=== PATIENT | female | born 1955 | race Caucasian/White ===

== ENCOUNTER 2016-11-13 23:32 | Observation (INO) | payer OTHER ==
[2016-11-14] MEDS ORDERED: ALBUTEROL SULFATE 2.5 MG/0.5 ML VIAL.NEB IH ONE ×3 (00:05→05:46)
--- NOTE | 2016-11-14 00:06 | ERNOTE ---
Dyspnea - General Presenting Symptoms: shortness of breath, wheezing Time Seen by Provider: 11/13/16 23:47 Source: patient Exam Limitations: no limitations - Immun/Allergies/Home Medications Immunizations: IMMUNIZATION HX Immunizations Up to Date No History of Influenza Vaccine No Allergies/Adverse Reactions: Allergies adhesive tape Allergy (Verified 11/13/16 23:46) Home Medications: HOME MEDICATIONS Estrogens, Conjugated [Premarin] 0.3 mg PO DAILY 11/13/16 [Last Taken Unknown] - History of Present Illness Narrative: Pt states she began to have sinusitis symptoms a couple of days ago that worsened today. She began to have chest tightness and presented to the ED. 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 Initiating event: Reports: upper resp illness Frequency of episodes: Reports: frequent episodes - of sinusitis Modifying Factors - (Improves): Reports: nothing Modifying Factors (Worsens): Reports: activity Associated Symptoms-Dyspnea: Reports: fever/chills - shaking chills and teeth chattering today Review of Systems - Review of Systems Constitutional: Present: recent illness, chills, fatigue EYE: Present: no symptoms reported ENT: Present: nose congestion Respiratory: Present: See HPI Cardiology: Present: chest pain Gastrointestinal/Abdominal: Present: nausea, diarrhea Genitourinary: Present: no symptoms reported Musculoskeletal: Present: no symptoms reported Skin: Absent: rash Neurological: Present: headache Endocrine: Present: excessive sweating Hematologic/Lymphatic: Present: no symptoms reported Psych: Present: no symptoms reported - Patient's Past Medical History Patient History - Medical: Other Patient History - Cardiac/Respiratory: No pertinent hx Patient History - Cancer: No Hx of Cancer Patient History - Surgical Procedures: D & C, Hysterectomy Patient History - Other: None - Social History Living Situations: home Psych History: No pertinent hx Smoking Status: Never smoker Alcohol Use: none Drug Use: none - Immunizations Immunizations Up to Date: No History of Influenza Vaccine: No Physical Exam - Physical Exam General Appearance: Present: wd/wn, alert, no apparent distress Head Exam: Present: normal inspection, no evidence of injury Eye Exam: Normal inspection: bilateral Neck: Present: normal inspection, nontender Respiratory: Present: no respiratory distress, rales, rhonchi - left > right , wheezing Cardiovascular/Chest: Present: no murmur, tachycardia Extremity Exam: Present: normal inspection, non-tender, normal range of motion, no edema Neurological Exam: Present: alert, oriented, normal mood/affect, no motor/ sensory deficits Skin Exam: Present: normal color, warm/dry Lymphatic Exam: Present: no adenopathy ED Progress - Results and Orders Patient's Lab Results:: I have reviewed the patient's lab results. Results and Orders: Laboratory Tests 11/14/16 11/14/16 00:15 00:15 WBC 11.1 H Hgb 13.2 Hct 39.3 Plt Count 289 Neutrophils % 86.5 H Sodium 141 Potassium 3.1 L Chloride 104 Carbon Dioxide 25.8 BUN 12 Creatinine 0.94 Random Glucose 168 H Calcium 9.0 Total Bilirubin 0.3 AST 14 ALT 20 Alkaline Phosphatase 93 Troponin I 0.140 H* Total Protein 7.2 Albumin 3.5 - Vital Signs Patient's Vital Signs:: I have reviewed the patient's vital signs. Vital Signs: Vital Signs 11/13/16 23:34 Temperature 36.4 C L Pulse Rate 120 H Respiratory 20 Rate Blood Pressure 213/111 O2 Sat by Pulse 86 L Oximetry - EKG EKG: supraventricular tachycardia, RBBB - incomplete, nonspecific ST T wave changes EKG read: Interp. by me - X-Ray X-Ray #1 X-Ray: chest Interpretation: Interp. by me X-ray Comments: RLL pneumonia - CT/Ultrasound CT/Ultrasound Narrative: CTA chest No PE seen Slight Patchy groundglass densities No pleural effusion or pneumothorax No aneurism or dissection - Progress/Reassessment Chief Complaint: Dyspnea Progress:: Improved Progress Note-Subjective: 11/14/16 01:27 discussed results with patient including RLL pneumonia and slight elevation of Troponin. discussed obs admit, pt agreed. After discussing this with the patient the d-dimer result was returned and it was elevated. Wells score is 1.5 and I went back in to discuss this with the patient and the possibility of getting a CT angiogram. Family then stated that the patient has been having some hemoptysis and did have a 3 hour flight and car riding to get here. She also has risk factors of obesity and on hormone replacement therapy. After discussing these factors her Wells score was then >2 and moderate probability. She and family agreed that they were concerned enough about PE as well that they would prefer to have the CT angio done tonight if we can get a large bore IV in place. Nursing had difficulty getting a 20g IV initially but will go back and see if a vein that could take an 18g IV could be found. 11/14/16 01:33 18g IV was placed and CT angio of her chest ordered. 11/14/16 02:[address] angio with patient and observation admission. Pt agrees with obs. admission Spoke with Anya LEWISP hospitalist about observation admit. She agrees with obs admission Departure Clinical Impression: Pneumonia Qualifiers: Pneumonia type: due to unspecified organism Laterality: right Lung location: lower lobe of lung Qualified Code(s): J18.1 - Lobar pneumonia, unspecified organism - Departure Disposition: [facility] Condition: Fair
[2016-11-14 00:36] LABS: Hematocrit 39.3 % (37.0-47.0); Hemoglobin 13.2 gm/dL (12.5-16.0); Mean Cell Volume 87.7 fl (78-100); Mean Corpuscular Hemoglobin 29.5 pg (27-31); Mean Corpuscular Hgb Conc 33.6 g/dl (32-36); Mean Platelet Volume 9.8 fl (6.0-9.5); Neutrophil # 9.6 K/mm3 (1.3-6.0); Neutrophil % 86.5 % (42-75.0); Platelet Count 289 K/mm3 (150-450); Red Blood Count 4.48 M/mm3 (4.2-5.4); Red Cell Distribution Width 12.6 % (11.5-14.0); White Blood Count 11.1 K/mm3 (4.0-10.5)
[2016-11-14 00:58] LABS: Albumin * 3.5 gm/dl (3.4-5.0); Anion Gap 14.3 mmol/L (6.8-13.8); BUN/Creatinine Ratio 12.8 (9.0-21.6); Bilirubin, Total 0.3 mg/dL (0.0-1.1); Ca. Corrected For Albumin 9.1 mg/dL (8.4-10.2); Carbon Dioxide 25.8 mmol/L (24-32.6); Potassium 3.1 mmol/L (3.4-4.6); Total Protein 7.2 gm/dL (6.2-8.2)
[2016-11-14 00:59] LABS: Troponin I 0.14 ng/ml (0.00-0.10)
[2016-11-14 03:54] VITALS: BP 133/59
[2016-11-14] MEDS ORDERED: POTASSIUM CHLORIDE 20 MEQ TABLET.SA PO ONE (04:30)
[2016-11-14] MEDS ORDERED: ACETAMINOPHEN 325 MG TABLET PO PRN (05:43)
--- NOTE | 2016-11-14 06:01 | HP ---
Chief Complaint - Chief Complaint Date of Service: 11/14/16 Time of Service: 04:30 Chief Complaint: cough, SOB, History of Present Illness: 61 years old female adm to the hospital from ER with reports of cough, with thick yellow -green sputum. Associated s/s shortness of breath, rigors, chills and fever.pt stated for the past few days she been feeling a little fatigue and having the cough. Initially she thought it was her sinus, she had recurrent sinusitis in the past. While at home she used Tylenol and azithromycin x1 dose provided by her sister , however s/s unresolved. She was having increased chills and rigors overnight, felt more concern and came to the ER. In ER CXR: left lower lobe pneumonia. Dimer elevated CTA chest negative for pulmonary emboli, initial troponin elevated and repeating lab. In Er Hypoxic spo2 80% on room air. IV antbx initiated and neb treatment. pt stated she is feeling much better. Plan of care discussed with pt she verbalized understanding and agree. - Patient's Past Medical History Patient History - Medical: Other - sinusitis Patient History - Cardiac/Respiratory: No pertinent hx Patient History - Cancer: No Hx of Cancer Patient History - Surgical Procedures: D & C, Hysterectomy Patient History - Other: None LMP (females 10-50): Menopausal - Family History Mother Family History - Cardiac/Respiratory: Aneurysm - brain Father Family History - Cardiac/Respiratory: Aneurysm - aortic, CVA/Stroke - Social History Living Situations: spouse Psych History: No pertinent hx Smoking Status: Current every day smoker Have you smoked in the past 12 months: No Do you dip or chew tobacco: No Alcohol Use: none Drug Use: none - Immunizations Immunizations Up to Date: No History of Influenza Vaccine: No Review Of Systems (GEN) - Review of Systems Generalized/Overall Review: Present: Chills, Fever, Malaise EENTM: Present: No Symptoms Reported Respiratory: Present: Cough, Shortness of Breath Cardiac: Present: No Symptoms Reported Abdominal: Present: No Symptoms Reported Genitourinary: Present: No Symptoms Reported Musculoskeletal: Present: No Symptoms Reported Neurological: Present: No Symptoms Reported, Anxiety Skin: Present: No Symptoms Reported Endocrine: Present: No Symptoms Reported Immunizations: IMMUNIZATION HX Immunizations Up to Date No History of Influenza Vaccine No Allergies/Adverse Reactions: Allergies Allergy/AdvReac Type Severity Reaction Status Date / Time adhesive tape Allergy Verified 11/13/16 23:46 Home Medications: HOME MEDICATIONS Estrogens, Conjugated [Premarin] 0.3 mg PO DAILY 11/13/16 [Last Taken Unknown] Exam - Exam Vital Signs: Vital Signs - Last Taken Temp 37.1 C 11/14/16 03:02 Pulse 111 H 11/14/16 03:02 Resp 18 11/14/16 03:02 BP 133/59 11/14/16 03:02 Pulse Ox 94 11/14/16 03:02 Constitutional: Present: Alert, Oriented x3, Cooperative, Well developed, No distress, Elderly, Obese ENT Exam: Present: hearing grossly normal Eye Exam: bilateral eye: normal inspection Neck: Present: full range of motion Back Exam: Present: normal inspection Breasts: Present: Exam deferred Respiratory: Present: chest non-tender, no respiratory distress, decreased breath sounds, wheezing Cardiovascular/Chest: Present: normal peripheral pulses, regular rate, rhythm, diastolic murmur Peripheral Pulses: dorsalis-pedis (R): 3+, dorsalis-pedis (L): 3+ Abdomen: Present: Normal bowel sounds, soft, nontender, nondistended, no rebound tenderness /Rectal: Present: Exam deferred Extremity: Present: normal range of motion, non-tender, normal inspection, no pedal edema, no calf tenderness Skin Exam: Present: normal color, warm/dry, no cyanosis Neurologic: Present: oriented x 3 Appearance: Present: appropriate appearance Eye contact: Present: cooperative, good eye contact Diagnostic Studies: Laboratory Results WBC 11.1 K/mm3 (4.0-10.5) H 11/14/16 00:15 RBC 4.48 M/mm3 (4.2-5.4) 11/14/16 00:15 Hgb 13.2 gm/dL (12.5-16.0) 11/14/16 00:15 Hct 39.3 % (37.0-47.0) 11/14/16 00:15 MCV 87.7 fl (78-100) 11/14/16 00:15 MCH 29.5 pg (27-31) 11/14/16 00:15 MCHC 33.6 g/dl (32-36) 11/14/16 00:15 RDW 12.6 % (11.5-14.0) 11/14/16 00:15 Plt Count 289 K/mm3 (150-450) 11/14/16 00:15 MPV 9.8 fl (6.0-9.5) H 11/14/16 00:15 Immature Gran % (Auto) 0.40 % (0.001-0.429) 11/14/16 00:15 Immature Gran # (Auto) 0.04 K/mm3 (0.000-0.0310) H 11/14/16 00:15 Neutrophils % 86.5 % (42-75.0) H 11/14/16 00:15 Lymphocytes % 11.9 % (20-51) L 11/14/16 00:15 Monocytes % 0.5 % (0.0-9) 11/14/16 00:15 Eosinophils % 0.4 % (0.0-3.0) 11/14/16 00:15 Basophils % 0.3 % (0.0-1.0) 11/14/16 00:15 Nucleated RBC % 0.0 k/mm3 (0-1) 11/14/16 00:15 Neutrophils # 9.6 K/mm3 (1.3-6.0) H 11/14/16 00:15 Lymphocytes # 1.3 k/mm3 (1.5-3.5) L 11/14/16 00:15 Monocytes # 0.1 k/mm3 (0.0-1.0) 11/14/16 00:15 Eosinophils # 0.0 k/mm3 (0.0-0.7) 11/14/16 00:15 Absolute Basophils 0.0 k/mm3 (0.0-0.1) 11/14/16 00:15 D-Dimer 1.30 mg/L (0.19-0.49) H 11/14/16 00:15 Sodium 141 mmol/L (132-142) 11/14/16 00:15 Plasma Sodium 142 mmol/L (130-142) 11/14/16 00:15 Potassium 3.1 mmol/L (3.4-4.6) L 11/14/16 00:15 Chloride 104 mmol/L (97-106) 11/14/16 00:15 Carbon Dioxide 25.8 mmol/L (24-32.6) 11/14/16 00:15 Anion Gap 14.3 mmol/L (6.8-13.8) H 10 00:15 BUN 12 mg/dL (3-23) 11/14/16 00:15 Creatinine 0.94 mg/dL (0.4-1.4) 11/14/16 00:15 Est GFR (Non-Af Amer) 64 mL/min (60-130) 11/14/16 00:15 BUN/Creatinine Ratio 12.8 (9.0-21.6) 11/14/16 00:15 Random Glucose 168 mg/dL (70-110) H 11/14/16 00:15 Calcium 9.0 mg/dL (7.9-10.9) 11/14/16 00:15 Calcium Adj for Albumin 9.1 mg/dL (8.4-10.2) 11/14/16 00:15 Total Bilirubin 0.3 mg/dL (0.0-1.1) 11/14/16 00:15 AST 14 U/L (0-48) 11/14/16 00:15 ALT 20 U/L (19-67) 11/14/16 00:15 Alkaline Phosphatase 93 U/L (50-170) 11/14/16 00:15 Troponin I 0.140 ng/ml (0.00-0.10) H* 11/14/16 00:15 Total Protein 7.2 gm/dL (6.2-8.2) 11/14/16 00:15 Albumin 3.5 gm/dl (3.4-5.0) 11/14/16 00:15 CXR: Right lower lobe pneumonia Assessment/Plan - Narrative Narrative: Community acquired pneumonia Seen on CXR: Right lower lobe pneumonia Continue with Rocephin sputum and blood culture pending Neb treatment schedule for shortness of breath supplemented oxygen Hypokalemia On adm potassium level 3.1 On adm troponin 0.140----> trending EKG noted and if repeated troponin remain elevated repeat EKG K-dur 40meq supplemented and monitor bmp Elevated Dimer CTA chest negative for PE Hypoxic- resolved In ER spo2 86% on room air supplemented oxygen Code status: Full GI ppx Pepcid VTE ppx : SCD and ambulate - Assessment/Plan (1) Pneumonia Problem: Acute Qualifiers: Pneumonia type: due to unspecified organism Laterality: right Lung location: lower lobe of lung Qualified Code(s): J18.1 - Lobar pneumonia, unspecified organism (2) Hypokalemia Problem: Acute (3) Elevated d-dimer Problem: Acute
[2016-11-14 06:08] LABS: Hematocrit 36.4 % (37.0-47.0); Hemoglobin 12.4 gm/dL (12.5-16.0); Mean Cell Volume 87.1 fl (78-100); Mean Corpuscular Hemoglobin 29.7 pg (27-31); Mean Corpuscular Hgb Conc 34.1 g/dl (32-36); Mean Platelet Volume 9.4 fl (6.0-9.5); Neutrophil # 13.4 K/mm3 (1.3-6.0); Neutrophil % 88.5 % (42-75.0); Platelet Count 291 K/mm3 (150-450); Red Blood Count 4.18 M/mm3 (4.2-5.4); Red Cell Distribution Width 12.7 % (11.5-14.0); White Blood Count 15.1 K/mm3 (4.0-10.5)
[2016-11-14 06:21] LABS: Hemoglobin A1C 5.9 % (4.00-6.0)
[2016-11-14] MEDS: FAMOTIDINE 20 MG TABLET PO SCH ×2 (06:32→09:07)
[2016-11-14] MEDS ORDERED: ASPIRIN 81 MG TAB.CHEW PO ONE (06:42)
[2016-11-14] MEDS ORDERED: ASPIRIN 325 MG TABLET.DR ONE (06:51)
[2016-11-14] MEDS ORDERED: ALBUTEROL SULFATE 2.5 MG/0.5 ML VIAL.NEB IH SCH (07:00)
[2016-11-14] MEDS ORDERED: METOPROLOL TARTRATE 50 MG TABLET PO ONE (09:36)
[2016-11-14] MEDS ORDERED: ROSUVASTATIN CALCIUM 20 MG TABLET PO SCH (09:45)
[2016-11-14] MEDS ORDERED: HEPARIN SODIUM,PORCINE 5,000 UNITS/ML VIAL IV STA (09:47)
--- NOTE | 2016-11-14 11:06 | DS ---
(1) NSTEMI (non-ST elevated myocardial infarction) Diagnosis(s): Marce is a 61 yo female that was admitted initially for pneumonia. However patient had elevated troponin that was trending upwards. There were no acute changes on EKG. Radiology did not see any evidence of pneumonia on chest xray. Leukocytosis could be explained from actively being treated sinusitis. With the patients symptoms of acute onset of shortness of breath and hypoxia and elevated troponin I feel the diagnosis of acute NSTEMI is more likely. ND protocol orders were discussed with the patient including heparin, aspirin, beta -fabian, statin, ACEI. 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 She wanted to travel immediately to [place] for treatment and left against medical advice. Discussed air ambulance to [place] or [place] but she declined. She left AMA and reported that she will go straight to the hospital in [place] and will stop at another hospital on the way if she acute has any further episodes. At the time of leaving she was symptom free and was not requiring oxygen. Problem: Acute Procedures Performed: none Discharge Disposition: AMA Disposition: Home self-care Condition: Serious Discharge Activity: Activity as tolerated Discharge Diet: Low salt Complete Home Medications List: Complete Home Medication List: Estrogens, Conjugated [Premarin] 0.3 mg PO DAILY 11/13/16
== END 2016-11-14 11:00 | disposition left against medical advice (07) ==
LOC: ER 23:32 → MS 11-14 02:44
PROVIDERS: ADMIT Nurse Practitioner; ATTEND Family Medicine
DX: I21.4 Non-ST elevation (NSTEMI) myocardial infarction (principal); F17.200 Nicotine dependence, unspecified, uncomplicated; J18.1 Lobar pneumonia, unspecified organism; E66.9 Obesity, unspecified; Z68.41 Body mass index [BMI] 40.0-44.9, adult; E87.6 Hypokalemia; R78.89 Finding of other specified substances, not normally found in blood; J32.9 Chronic sinusitis, unspecified
CPT/HCPCS: 36415; 71020; 71275; 80053; 83036; 84484; 85025; 85379; 87040; 87070; 93005; 94640; 94760; 96365; 99285; G0378